=== PATIENT | female | born 2000 | race Caucasian/White ===

== ENCOUNTER 2023-03-19 15:11 | Emergency (ER) | payer BC, SELFPAY ==
--- NOTE | ~2023-03-19 | CT_ITS ---
EXAMINATION: CT abdomen pelvis w con DATE: 03/19/2023 18:57 INDICATION: Right lower abdomen pain. TECHNIQUE: Computed tomography (CT) of the abdomen and pelvis was performed with 100 cc Omnipaque 350 intravenous contrast. The dose-length product was 227.26 mGy-cm. Automated exposure control and iter ative reconstruction technique were employed. COMPARISON: None. FINDINGS: Lung bases unremarkable. Heart size normal. No significant pleural or pericardial effusion. The liver, spleen, pancreas, adrenal glands and kidneys are unremarkable. Gallbladder is present. No nobstructive bowel gas pattern. IUD present in the uterus. Small amount of free fluid in the pelvis. Nonobstructive bowel pattern. No significant vascular abnormality. No lymphadenopathy. No free air. B ladder is not well distended for evaluation of wall thickening. No acute osseous abnormality. There a re follicular changes of the right ovary. The appendix is not positively visualized. There is no per icecal inflammatory change to suggest appendicitis. IMPRESSION: 1. No acute abdominal abnormality. Reviewed, dictated and finalized at location A.
--- NOTE | ~2023-03-19 | US_ITS ---
EXAMINATION: US pelvic complete w TV DATE: 03/19/2023 19:24 INDICATION: Pelvic pain Comparison:No prior studies for comparison. TECHNIQUE: Multiple transabdominal and endovaginal sonographic images of the pelvis performed. FINDINGS: The uterus measures 6.6 x 3.9 x 5.6 cm. Uterus is retroverted. There is an IUD in the endom etrium at the fundus. The endometrial complex measures 7 mm. The right ovary measures 3.8 x 2 x 2.5 cm and the left ovary measures 4 x 4 x 1.7 cm. There are smal l follicles in each ovary. Normal doppler signal in both ovaries. There is free fluid in the pelvis. There are no abnormal masses seen on either side. IMPRESSION: 1. Unremarkable pelvic ultrasound. Reviewed, dictated and finalized at location A.
[2023-03-19 15:32] VITALS: BP 110/78; PULSE 79; RESP 20; TEMP 36.4; O2SAT 98
--- NOTE | 2023-03-19 15:44 | ED.GENADULT ---
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 She states the pain has been moving across her abdomen but there seems to be more pain to the right lower quadrant. 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 She states the pain has been moving across her abdomen but there seems to be more pain to the right lower quadrant. No vaginal bleeding/ No changes to urine/ Last BM was today / No nausea vomiting. <Lio Shen MD - Last Filed: 03/19/23 19:04> Related Data Home medications: Home Medications Medication Instructions Recorded Confirmed cranberry extract PO 11/22/22 11/22/22 ferrous sulfate PO 11/22/22 11/22/22 lamotrigine 150 mg tablet 75 mg PO DAILY 11/22/22 11/22/22 (Lamictal) [id number] fum-folic ac-om3 PO 11/22/22 11/22/22 [One A Day Women's DHA] venlafaxine 37.5 mg tablet 37.5 mg PO DAILY 11/22/22 11/22/22 <Melissa Ortega, MEDICAL DRIVER - Last Filed: 03/19/23 15:46> Allergies/adverse reactions: Allergies Allergy/AdvReac Type Severity Reaction Status Date / Time Raven auto injector AdvReac Severe Anaphylaxis Uncoded 11/22/22 13:37 <Melissa Ortega, MEDICAL DRIVER - Last Filed: 03/19/23 15:46> Review of Systems Review of Systems: CONSTITUTIONAL: Denies fever, chills, or sweats. CARDIOVASCULAR: Denies chest pain, palpitations, or edema. RESPIRATORY: Denies cough or dyspnea. GASTROINTESTINAL: Right lower quadrant abdominal pain, nausea denies vomiting, or diarrhea. GENITOURINARY: Denies dysuria or hematuria. SKIN: Denies rash or itching. MUSCULOSKELETAL: Denies back pain, joint pain, or myalgia. NEUROLOGIC: Denies headache, numbness, dizziness, or weakness. PSYCHIATRIC: Denies anxiety or depression. <Lio Shen MD - Last Filed: 03/19/23 19:04> [facility] Past Medical History Medical History: Medical History ADHD Allergies Anemia Anxiety Asthma Bipolar 1 disorder Depression Encounter to establish care Exercise-induced asthma Lightheadedness Migraine OCD (obsessive compulsive disorder) PTSD (post-traumatic stress disorder) Tachycardia <Melissa Ortega APRN - Last Filed: 03/19/23 15:46> Family History Family History: Family History Mother Asthma Diabetes mellitus Hypertension Heart disease Alcohol abuse Sibling Alcohol abuse Asthma Depression Grandparent Alcohol abuse Asthma Diabetes mellitus Hypertension Depression Heart disease Thyroid disease <Melissa Ortega, MEDICAL DRIVER - Last Filed: 03/19/23 15:46> Social History Social History: Social History Smoking status: Never smoker Alcohol intake: current Drinks per week: 2 Substance use: never Substance use type: does not use <Melissa Ortega, MEDICAL DRIVER - Last Filed: 03/19/23 15:46> Exam Narrative: GENERAL: Well-developed, well-nourished, and in no acute distress. Appears uncomfortable HEAD: Normocephalic, atraumatic. EYES: PERRLA and EOMI. CHEST: Clear to auscultation. No respiratory distress. No wheezes rales or rhonchi HEART: Regular rate and rhythm. No murmur heard. Normal peripheral pulses. ABDOMEN: Soft, right lower quadrant tenderness to p
[2023-03-19 16:03] LABS: Basophils Percent Auto 0.5 % (0.2-1.2); Eosinophils Absolute Auto 0.1 K/mm3 (0-0.3); Eosinophils Percent Auto 1.3 % (0-4.4); Hematocrit 41.1 % (37.0-47.0); Hemoglobin 13.5 g/dL (12.0-15.0); Immature Granulocyte Absolute 0.01 K/mm3 (0.00-0.031); Immature Granulocyte Percent A 0.1 % (0-0.5); Lymphocytes Absolute Auto 1.65 K/mm3 (0.9-3.2); Lymphocytes Percent Auto 19.6 % (18.3-44.2); Mean Corpuscular HGB Conc 32.8 g/dl (32-36); Mean Corpuscular Hemoglobin 28.3 pg (26-34); Mean Corpuscular Volume 86.2 fl (80-100); Mean Platelet Volume 10.3 fl (7.4-10.4); Monocytes Absolute Auto 0.8 K/mm3 (0.1-0.6); Neutrophils Absolute Auto 5.8 K/mm3 (1.3-6.7); Neutrophils Percent Auto 68.5 % (45.5-73.1); Platelet Count Result 215 k/mm3 (150-375); Red Blood Count 4.77 M/mm3 (4.2-5.4); Red Cell Distribution Width 11.9 % (11.5-14.5); White Blood Count 8.4 K/mm3 (4.5-10.0)
[2023-03-19 16:11] LABS: Alanine Aminotransferase 18 U/L (6-35); Albumin Level 4.6 g/dL (3.5-5.1); Alkaline Phosphatase 78 U/L (38-126); Anion Gap 10 mmol/L (8-16); Aspartate Amino Transferase 32 U/L (14-36); Blood Urea Nitrogen 12 mg/dL (7-17); Calcium 9.1 mg/dL (8.4-10.2); Carbon Dioxide 24 mmol/L (22-30); Chloride 105 mmol/L (98-107); Estimated CRCL calculation 75 ml/min; Estimated Glomerular Filt Rate > 60; Glucose 90 mg/dL (65-110); Potassium 4.2 mmol/L (3.4-5.0); Sodium 139 mmol/L (137-145)
[2023-03-19 17:54] LABS: Lactic Acid Reflex 0.8 mmol/L (0.7-2.0)
[2023-03-19 17:56] LABS: Appearance Urine Clear (Clear); Bilirubin Urine Negative (Negative); Blood Urine Negative (Negative); Color Urine Yellow (Yellow); Glucose Urine UA Negative (Negative); Ketones Urine Negative (Negative); Leukocyte Esterase Ur Negative LEU/UL (Negative); Nitrate Urine Negative (Negative); Protein Urine Negative (Negative); Specific Grav Ur 1.025 (1.001-1.035); Urobilinogen Urine 0.2 mg/dL (<2.0); pH Urine 5.5 (5.0-9.0)
[2023-03-19 18:15] LABS: Add Urine Microscopic? NO
[2023-03-19] MEDS: ONDANSETRON INJ 4 MG/2 ML VIAL IV PUSH (18:17)
[2023-03-19] MEDS: MORPHINE SULFATE (*CRX) 4 MG/ML INJ IV PUSH (18:17)
--- NOTE | 2023-03-19 18:26 | PC.NURSE ---
Lab called to have HCG ran off urine specimen in lab
[2023-03-19 18:39] LABS: Urine Pregnancy Test Negative
[2023-03-19 18:40] VITALS: BP 110/66; PULSE 68; RESP 16; TEMP 36.7; O2SAT 100
[2023-03-19 18:40] LABS: Pregnancy On Board Control Positive
== END 2023-03-19 21:31 | disposition home or self-care (01) ==
PROVIDERS: Nurse Practitioner Family; Emergency Provider Preventive Medicine Aerospace Medicine; PCP Nurse Practitioner Family
DX: R10.2 Pelvic and perineal pain (principal); J45.909 Unspecified asthma, uncomplicated; F90.9 Attention-deficit hyperactivity disorder, unspecified type; F41.9 Anxiety disorder, unspecified; F31.9 Bipolar disorder, unspecified; F42.9 Obsessive-compulsive disorder, unspecified; F43.10 Post-traumatic stress disorder, unspecified; Z86.2 Personal history of diseases of the blood and blood-forming organs and certain disorders involving the immune mechanism; Z97.5 Presence of (intrauterine) contraceptive device
CPT/HCPCS: 36415; 74177; 76830; 76856; 80053; 81003; 81025; 83605; 85025; 96374; 96375; 99284; J2270; J2405; Q9967

== ENCOUNTER 2023-07-01 18:58 | Emergency (ER) | payer BC, SELFPAY ==
--- NOTE | 2023-07-01 19:09 | ED.URI ---
HPI - URI/Sore Throat General Chief Complaint: Upper Respiratory Infection Stated Complaint: pink eye,tonsil swollen Time Seen by Provider: 07/01/23 19:09 Source: patient Mode of arrival: ambulatory Limitations: no limitations History of Present Illness HPI Narrative: [age] year Old female presents with complaint of sore throat, fatigue starting yesterday. patient reports history of tonsillitis. Also reports bilateral eye redness, itching and drainage for 2 days. States 1 of her children currently on antibiotic drops for bacterial conjunctivitis. All systems reviewed and negative except as noted above. Related Data Home Medications Medication Instructions Recorded Confirmed cranberry extract PO 11/22/22 11/22/22 ferrous sulfate PO 11/22/22 11/22/22 lamotrigine 150 mg tablet 75 mg PO DAILY 11/22/22 11/22/22 (Lamictal) -sqhu fum-folic ac-om3 PO 11/22/22 11/22/22 [One A Day Women's DHA] venlafaxine 37.5 mg tablet 37.5 mg PO DAILY 11/22/22 11/22/22 Allergies Allergy/AdvReac Type Severity Reaction Status Date / Time pork derived (porcine) AdvReac Nausea and Verified 07/01/23 19:16 Vomiting Raven auto injector AdvReac Severe Anaphylaxis Uncoded 07/01/23 19:16 Review of Systems Review of Systems: CONSTITUTIONAL: Denies fever, chills, or sweats. Reports fatigue. EYES: Denies visual changes. Reports bilateral eye redness, itching, discharge. ENT: Denies rhinorrhea, congestion . Reports sore throat. Denies otalgia. CARDIOVASCULAR: Denies chest pain, palpitations, or edema. RESPIRATORY: Denies cough or dyspnea. GASTROINTESTINAL: Denies abdominal pain, nausea, vomiting, or diarrhea. GENITOURINARY: Denies dysuria or hematuria. SKIN: Denies rash or itching. MUSCULOSKELETAL: Denies back pain, joint pain, or myalgia. NEUROLOGIC: Denies headache, numbness, or weakness. PSYCHIATRIC: Denies anxiety or depression. All other systems reviewed are negative, except as documented in HPI. [facility] Past Medical History Medical History ADHD Allergies Anemia Anxiety Asthma Bipolar 1 disorder Depression Encounter to establish care Exercise-induced asthma Lightheadedness Migraine OCD (obsessive compulsive disorder) PTSD (post-traumatic stress disorder) Tachycardia Family History Family History Mother Asthma Diabetes mellitus Hypertension Heart disease Alcohol abuse Sibling Alcohol abuse Asthma Depression Grandparent Alcohol abuse Asthma Diabetes mellitus Hypertension Depression Heart disease Thyroid disease Social History Social History Smoking status: Never smoker Alcohol intake: current Drinks per week: 2 Substance use: never Substance use type: does not use Comments At time of signature, agree with nursing past medical, surgical, social and family history. There is no relevant family history pertinent to the presenting complaint. Exam Narrative: GENERAL: This is a well-nourished, well-developed patient, in no apparent distress. HEAD: normocephalic, atraumatic. EYES: PERRL. Sclera and conjunctiva erythematous bilaterally with purulent drainage. Vision is grossly intact. EARS: External ears normal, auditory canals clear and without drainage, TMs normal without perforation. Hearing grossly intact. NOSE: External nose normal with no obvious nasal discharge, nares without redness, no rhinorrhea. THROAT: Mucous membranes moist, mild erythema, tonsils 1+ bilaterally without exudates. NECK: Neck supple, non-tender without lymphadenopathy, masses or thyromegaly. CARDIOVASCULAR: Regular rate and rhythm without murmurs, gallops, or rubs. RESPIRATORY: Clear to auscultation. Breath sounds equal bilaterally. No wheezes, rales, or rhonchi. SKIN: warm, Dry, intact with no suspicious
[2023-07-01 19:13] VITALS: BP 113/81; PULSE 78; RESP 16; TEMP 36.5; O2SAT 100
== END 2023-07-01 19:35 | disposition home or self-care (01) ==
PROVIDERS: Emergency Provider Nurse Practitioner Family; PCP Nurse Practitioner Family
DX: J02.0 Streptococcal pharyngitis (principal); H10.33 Unspecified acute conjunctivitis, bilateral; J45.909 Unspecified asthma, uncomplicated; F41.9 Anxiety disorder, unspecified; F32.A Depression, unspecified
CPT/HCPCS: 87880; 99213; G0463

== ENCOUNTER 2023-11-21 18:33 | Emergency (ER) | payer BC, SELFPAY ==
[2023-11-21 18:38] VITALS: BP 111/69; PULSE 81; RESP 18; TEMP 36.6; O2SAT 100
--- NOTE | 2023-11-21 18:48 | ED.SKABFB ---
HPI - Skin/Abscess/Foreign Bdy General Chief complaint: Skin/Abscess/Foreign Body Stated complaint: Posion Nancy Time Seen by Provider: 11/21/23 18:42 Source: patient, RN notes reviewed and old records reviewed Mode of arrival: ambulatory Limitations: no limitations History of Present Illness HPI narrative: 23 year old female who presents to [facility] with complaints of 7-8 day history of poison nancy rash to the dorsal aspect of her left foot which has now spread to the top of her right foot and also behind her left ear. Patient reports that she has taken Benadryl, Ivarest ointment and also special scrub to use for poison nancy without resolution of rash. Patient reports no difficulty with breathing or with her swallowing. MD complaint: rash Onset (ago): day(s) (-8) Severity: mild Quality: pruritic Treatments prior to arrival: Benadryl and other (Ivarest and special scrub for poison nancy ) Related Data Home Medications Medication Instructions Recorded Confirmed cranberry extract PO 11/22/22 11/22/22 ferrous sulfate PO 11/22/22 11/22/22 lamotrigine 150 mg tablet 75 mg PO DAILY 11/22/22 11/22/22 (Lamictal) [id number] fum-folic ac-om3 PO 11/22/22 11/22/22 [One A Day Women's DHA] venlafaxine 37.5 mg tablet 37.5 mg PO DAILY 11/22/22 11/22/22 Allergies Allergy/AdvReac Type Severity Reaction Status Date / Time Progestins Allergy Anaphylaxis Verified 11/21/23 18:49 pork derived (porcine) AdvReac Nausea and Verified 11/21/23 18:49 Vomiting Review of Systems Review of Systems: CONSTITUTIONAL: Denies fever, chills, or sweats. CARDIOVASCULAR: Denies chest pain, palpitations, or edema. RESPIRATORY: Denies cough or dyspnea. SKIN: Reports poison nancy rash to dorsal left and right foot and behind left ear MUSCULOSKELETAL: Denies joint pain or myalgia. NEUROLOGIC: Denies headache, numbness, or weakness. All systems reviewed & are unremarkable except as noted in HPI and below PMFSH Past Medical History Medical History ADHD Allergies Anemia Anxiety Asthma Bipolar 1 disorder Depression Encounter to establish care Exercise-induced asthma Lightheadedness Migraine OCD (obsessive compulsive disorder) PTSD (post-traumatic stress disorder) Tachycardia Family History Family History Mother Asthma Diabetes mellitus Hypertension Heart disease Alcohol abuse Sibling Alcohol abuse Asthma Depression Grandparent Alcohol abuse Asthma Diabetes mellitus Hypertension Depression Heart disease Thyroid disease Social History Social History Smoking status: Never smoker Alcohol intake: current Drinks per week: 2 Substance use: never Substance use type: does not use Comments At time of signature, agree with nursing past medical, surgical, social and family history. There is no relevant family history pertinent to the presenting complaint Exam Narrative: GENERAL: Well-appearing, well-nourished, and in no acute distress. HEAD: Normocephalic, atraumatic. EYES: PERRLA, conjunctivae clear, and EOMI. ENT: Mucous membranes moist. Oropharynx without edema, erythema or lesions. NECK: Supple. No lymphadenopathy CHEST: Clear to auscultation. No respiratory distress. HEART: Regular rate and rhythm. SKIN: Warm, dry.? Patches of erythema and minimal edema to dorsal feet and behind left ear which is itchy NEURO:? Alert and oriented x3. PSYCH: Normal mood and affect Course Course Emergency Course: Patient is aware of diagnosis, understands and agrees to treatment plan.? Anticipatory guidance given.? Patient agrees to follow-up as directed and is aware of reasons to seek care at the emergency department. Portions of this record may have been created with voice recognition software Level of Care:
== END 2023-11-21 19:00 | disposition home or self-care (01) ==
PROVIDERS: Emergency Provider Registered Nurse; PCP Nurse Practitioner Family
DX: L23.7 Allergic contact dermatitis due to plants, except food (principal); J45.909 Unspecified asthma, uncomplicated; D64.9 Anemia, unspecified; F41.9 Anxiety disorder, unspecified; F32.A Depression, unspecified
CPT/HCPCS: 99213; G0463

== ENCOUNTER 2024-01-27 09:51 | Emergency (ER) | payer BC, SELFPAY ==
[2024-01-27 10:12] VITALS: BP 107/86; PULSE 109; RESP 18; TEMP 36.7; O2SAT 100
--- NOTE | 2024-01-27 10:12 | ED.URI ---
HPI - URI/Sore Throat General Chief Complaint: Upper Respiratory Infection Stated Complaint: cough and sore throat Time Seen by Provider: 01/27/24 10:15 Source: patient Mode of arrival: ambulatory Limitations: no limitations History of Present Illness HPI Narrative: Fariha is a 23-year-old female patient presenting to the clinic today with complaints of cough, sore throat, congestion, headache, and body aches that started this morning. Her is in the clinic today to be seen for similar symptoms and is positive for COVID. MD elicited complaint: cough, sore throat and nasal congestion Related Data Home Medications Medication Instructions Recorded Confirmed aripiprazole 5 mg tablet 5 mg PO DAILY 01/27/24 01/27/24 dextroamphetamine-amphetamine ER 30 mg PO DAILY 01/27/24 01/27/24 30 mg 24hr capsule,extend release hydroxyzine HCl 10 mg tablet 10 mg PO PRN PRN Anxiety 01/27/24 01/27/24 levonorgestrel 21 mcg/24 hr (up to See Rx Instructions .Route .COMPLEX 01/27/24 01/27/24 8 years) 52 mg intrauterine device (Mirena) Allergies Allergy/AdvReac Type Severity Reaction Status Date / Time Progestins Allergy Severe Anaphylaxis Verified 01/27/24 10:17 pork derived (porcine) AdvReac Intermediate Nausea and Verified 01/27/24 10:17 Vomiting Review of Systems Review of Systems: Pertinent positives per HPI. Patient denies any fever, chills, rash, visual changes, dizziness, shortness of breath, chest pain, palpitations, nausea, vomiting, diarrhea, constipation, abdominal pain, or any urinary issues. [facility] Past Medical History Medical History ADHD Allergies Anemia Anxiety Asthma Bipolar 1 disorder Depression Encounter to establish care Exercise-induced asthma Lightheadedness Migraine OCD (obsessive compulsive disorder) PTSD (post-traumatic stress disorder) Tachycardia Family History Family History Mother Asthma Diabetes mellitus Hypertension Heart disease Alcohol abuse Sibling Alcohol abuse Asthma Depression Grandparent Alcohol abuse Asthma Diabetes mellitus Hypertension Depression Heart disease Thyroid disease Social History Social History Smoking status: Never smoker Alcohol intake: current Drinks per week: 2 Substance use: never Substance use type: does not use Comments At the time of my signature, I reviewed and agree with the nursing past medical, surgical, social, and family history. There is no relevant family history pertinent to the patient complaint. Exam Narrative: General: Well-developed, well nourished, in no apparent distress Head: Normocephalic, atraumatic Eyes: Pupils equally round and reactive to light bilaterally, EOM intact, sclera and conjunctive clear, no discharge, lids normal Ears: TMs intact and clear, ear canals clear, no drainage, grossly hearing normal. Nose: Nares patent, clear nasal discharge, no inflammation, no sinus tenderness. Mouth: Oral pharynx without lesions or masses, good dentition, MMM. Neck: Supple, trachea midline, no enlargement of anterior or posterior cervical nodes, no thyroid masses or goiter palpable. Cardio: Regular rate and rhythm, s1 and s2 normal, no murmur appreciated. Resp: Clear to auscultation bilaterally, no rhonchi, rales, wheezing or rubs Course Course Emergency Course: Portions of this record may have been created with voice recognition software. Level of Care: Express Care Visit Vital Signs Vital signs: Vital signs reviewed MDM - URI/Sore Throat MDM Narrative Medical decision making narrative: At the time of visit patient is resting comfortably on the exam table. Patient appears to be nontoxic. Labs: COVID testing was negative in the clinic today. Plan: Patient's spouse has COVID and her COVID radha
== END 2024-01-27 10:50 | disposition home or self-care (01) ==
PROVIDERS: Emergency Provider Nurse Practitioner Family; PCP Nurse Practitioner Family
DX: B34.9 Viral infection, unspecified (principal); J06.9 Acute upper respiratory infection, unspecified; Z20.822 Contact with and (suspected) exposure to COVID-19; J45.909 Unspecified asthma, uncomplicated; F90.9 Attention-deficit hyperactivity disorder, unspecified type; F41.9 Anxiety disorder, unspecified
CPT/HCPCS: 87426; 99212; G0463

== ENCOUNTER 2024-04-15 11:11 | Emergency (ER) | payer BC, SELFPAY ==
[2024-04-15 11:31] VITALS: BP 112/69; PULSE 80; RESP 18; TEMP 36.5; O2SAT 100
[2024-04-15 11:40] LABS: EDSTREPNEGPOS1 Negative (Negative)
--- NOTE | 2024-04-15 11:56 | ED.URI ---
HPI - URI/Sore Throat General Chief Complaint: Upper Respiratory Infection Stated Complaint: bodyache / sore throat Time Seen by Provider: 04/15/24 11:57 Source: patient Mode of arrival: ambulatory Limitations: no limitations History of Present Illness HPI Narrative: 23-year-old female presents with complaint of sore throat, sensation of throat swelling and feeling like something is stuck in her throat. Also has body aches and fatigue. Symptoms started this morning. Patient reports that her was diagnosed with strep throat yesterday. Afebrile. All systems reviewed and negative except as noted above. Related Data Home Medications Medication Instructions Recorded Confirmed aripiprazole 5 mg tablet 5 mg PO DAILY 01/27/24 04/15/24 dextroamphetamine-amphetamine ER 30 mg PO DAILY 01/27/24 04/15/24 30 mg 24hr capsule,extend release hydroxyzine HCl 10 mg tablet 10 mg PO PRN PRN Anxiety 01/27/24 04/15/24 levonorgestrel 21 mcg/24 hr (up to See Rx Instructions .Route .COMPLEX 01/27/24 04/15/24 8 years) 52 mg intrauterine device (Mirena) Allergies Allergy/AdvReac Type Severity Reaction Status Date / Time Progestins Allergy Severe Anaphylaxis Verified 04/15/24 11:39 pork derived (porcine) AdvReac Intermediate Nausea and Verified 04/15/24 11:39 Vomiting Review of Systems Review of Systems: CONSTITUTIONAL: Denies fever, chills, or sweats. reports fatigue. EYES: Denies visual changes, redness, or discharge. ENT: Denies rhinorrhea, congestion . Reports sore throat. Denies otalgia. CARDIOVASCULAR: Denies chest pain, palpitations, or edema. RESPIRATORY: Denies cough or dyspnea. GASTROINTESTINAL: Denies abdominal pain, nausea, vomiting, or diarrhea. GENITOURINARY: Denies dysuria or hematuria. SKIN: Denies rash or itching. MUSCULOSKELETAL: Denies back pain, joint pain . Reports myalgia. NEUROLOGIC: Denies headache, numbness, or weakness. PSYCHIATRIC: Denies anxiety or depression. All other systems reviewed are negative, except as documented in HPI. [facility] Past Medical History Medical History ADHD Allergies Anemia Anxiety Asthma Bipolar 1 disorder Depression Encounter to establish care Exercise-induced asthma Lightheadedness Migraine OCD (obsessive compulsive disorder) PTSD (post-traumatic stress disorder) Tachycardia Family History Family History Mother Asthma Diabetes mellitus Hypertension Heart disease Alcohol abuse Sibling Alcohol abuse Asthma Depression Grandparent Alcohol abuse Asthma Diabetes mellitus Hypertension Depression Heart disease Thyroid disease Social History Social History Smoking status: Never smoker Alcohol intake: current Drinks per week: 2 Substance use: never Substance use type: does not use Comments At time of signature, agree with nursing past medical, surgical, social and family history. There is no relevant family history pertinent to the presenting complaint. Exam Narrative: GENERAL: This is a well-nourished, well-developed patient, in no apparent distress. HEAD: normocephalic, atraumatic. EYES: PERRL. Sclera clear/white. Vision is grossly intact. EARS: External ears normal, auditory canals clear and without drainage, TMs normal without perforation. Hearing grossly intact. NOSE: External nose normal with no obvious nasal discharge, nares without redness, no rhinorrhea. THROAT: Mucous membranes moist, erythema with mild swelling. No exudates. NECK: Neck supple, non-tender without lymphadenopathy, masses or thyromegaly. CARDIOVASCULAR: Regular rate and rhythm without murmurs, gallops, or rubs. RESPIRATORY: Clear to auscultation. Breath sounds equal bilaterally. No wheezes, rales, or rhonchi. SKIN: warm, Dry, intact with no suspicious lesions or rash, good texture and turgor. NEURO: awake, alert, and oriented to person, place and time. There were no obvious focal neurologic abnormalities. EXTREMITIES: No joint tenderness, effusion, or edema noted. Course Course Level of Care: Express Care Visit Vital Signs Vital signs: Vital Signs Temperature 36.5 C 04/15/24 11:31 Pulse Rate 80 04/15/24 11:31 Respiratory Rate 18 04/15/24 11:31 Blood Pressure 112/69 04/15/24 11:31 Pulse Oximetry 100 04/15/24 11:31 Oxygen Delivery Room Air 04/15/24 11:31 Temperature 36.5 C 04/15/24 11:31 Pulse Rate 80 11/26/24 11:31 Respiratory Rate 18 04/15/24 11:31 Blood Pressure 112/69 04/15/24 11:31 Pulse Oximetry 100 04/15/24 11:31 Oxygen Delivery Room Air 04/15/24 11:31 Reviewed MDM - URI/Sore Throat MDM Narrative Medical decision making narrative: negative rapid strep test. Strep culture ordered. Patient has been positive for strep throat yesterday. Will treat with antibiotic due to exposure and symptoms. Patient is aware of diagnosis, understands and agrees to treatment plan. Anticipatory guidance given. Patient agrees to follow-up as directed and is aware of reasons to seek care at the emergency department. Portions of this record may have been created with voice recognition software Differential Diagnosis Differential diagnosis: Likely upper respiratory infection, viral infection, influenza and pharyngitis Lab Data Labs: Lab Results 04/15/24 Range/Units 11:37 POC Grp A Strep Screen Negative (Negative) Discharge Plan Discharge Clinical Impression: Exposure to strep throat Acute pharyngitis Qualifiers: Pharyngitis/tonsillitis etiology: unspecified etiology Qualified Code(s): J02.9 - Acute pharyngitis, unspecified Patient Disposition: Home, Self-Care Condition: Stable Instructions: Antibiotic Form, Pharyngitis (ED) Additional Instructions: your strep test was negative today. due to your symptoms and exposure to strep I am prescribing an antibiotic today. Take antibiotic as prescribed until gone. Change toothbrush after taking antibiotic for 24 hours. Take ibuprofen or Tylenol every 6-8 hours as needed for pain and fever. Drink plenty of water and rest. See your doctor if symptoms are not improving. Prescriptions: New amoxicillin 500 mg capsule 500 mg PO Q12H 10 Days Qty: 20 0RF No Action dextroamphetamine-amphetamine 30 mg capsule,extended release 24hr 30 mg PO DAILY hydroxyzine HCl 10 mg tablet 10 mg PO PRN PRN (Reason: Anxiety) aripiprazole 5 mg tablet 5 mg PO DAILY Mirena 21 mcg/24 hr (8 yrs) 52 mg Intrauterine Device See Rx Instructions .ROUTE .COMPLEX Rx Instructions: intrauterinely Follow-up/Referrals: Debi Poe NP [Primary Care Provider] - Stand Alone Forms: Work/School Release IP Time of Disposition: 12:01
== END 2024-04-15 12:10 | disposition home or self-care (01) ==
PROVIDERS: Emergency Provider Nurse Practitioner Family; PCP Nurse Practitioner Family
DX: J02.9 Acute pharyngitis, unspecified (principal); Z79.899 Other long term (current) drug therapy
CPT/HCPCS: 87081; 87880; 99213; G0463

== ENCOUNTER 2024-04-23 16:04 | Emergency (ER) | payer BC, SELFPAY ==
[2024-04-23 16:13] VITALS: BP 104/71; PULSE 81; RESP 18; TEMP 36.9; O2SAT 100
--- NOTE | 2024-04-23 16:23 | ED.URI ---
HPI - URI/Sore Throat General Chief Complaint: Upper Respiratory Infection Stated Complaint: Body aches / sore throat Time Seen by Provider: 04/23/24 16:23 Source: patient, RN notes reviewed and old records reviewed Mode of arrival: ambulatory Limitations: no limitations History of Present Illness HPI Narrative: Patient who is being treated for strep, did not take antibiotics as prescribed, comes in complaining of body aches and sore throat that have been present for 3 days. She is complaining of chills and sweats. she has been taking Tylenol and ibuprofen with moderate results. Able to manage own secretions, no drooling or stridor no Related Data Home Medications Medication Instructions Recorded Confirmed aripiprazole 5 mg tablet 5 mg PO DAILY 01/27/24 04/23/24 dextroamphetamine-amphetamine ER 30 mg PO DAILY 01/27/24 04/23/24 30 mg 24hr capsule,extend release hydroxyzine HCl 10 mg tablet 10 mg PO PRN PRN Anxiety 01/27/24 04/23/24 levonorgestrel 21 mcg/24 hr (up to See Rx Instructions .Route .COMPLEX 01/27/24 04/23/24 8 years) 52 mg intrauterine device (Mirena) amoxicillin 500 mg capsule 500 mg PO BID 04/23/24 04/23/24 Allergies Allergy/AdvReac Type Severity Reaction Status Date / Time Progestins Allergy Severe Anaphylaxis Verified 04/23/24 16:05 pork derived (porcine) AdvReac Intermediate Nausea and Verified 04/23/24 16:05 Vomiting Review of Systems Review of Systems: All systems reviewed & are unremarkable except as noted in HPI and below Constitutional: Constitutional: Reports no additional constitutional complaints, Reports body ache(s), Reports headache(s) and Reports lethargy ENT: Reports system reviewed and no additional complaints, except as documented and Reports sore throat Cardiovascular: Cardiovascular: Reports no additional cardiovascular complaints Respiratory: Respiratory: Reports no additional respiratory complaints Gastrointestinal: Gastrointestinal: Reports no additional gastrointestinal complaints PMFSH Past Medical History Medical History ADHD Allergies Anemia Anxiety Asthma Bipolar 1 disorder Depression Encounter to establish care Exercise-induced asthma Lightheadedness Migraine OCD (obsessive compulsive disorder) PTSD (post-traumatic stress disorder) Tachycardia Family History Family History Mother Asthma Diabetes mellitus Hypertension Heart disease Alcohol abuse Sibling Alcohol abuse Asthma Depression Grandparent Alcohol abuse Asthma Diabetes mellitus Hypertension Depression Heart disease Thyroid disease Social History Social History Smoking status: Never smoker Alcohol intake: current Drinks per week: 2 Substance use: never Substance use type: does not use Comments At the time of my signature, I reviewed and agree with the nursing past medical, surgical, social, and family history. There is no relevant family history pertinent to the patient complaint. Exam Const: General: cooperative, no acute distress, alert and awake Orientation/consciousness: oriented to person, oriented to place and oriented to time HENMT: Head: normal to inspection Ears: TM's normal bilaterally Face/Nose/Sinus: No nasal discharge present Mouth: Yes moist mucous membranes Throat: posterior oropharynx abnormal erythema Resp: Effort & Inspection: normal respiratory effort and able to speak in complete sentences Auscultation: clear to auscultation bilaterally, no crackles, no rales, no rhonchi and no wheezes Cardio: Palpation: normal PMI Rate: regular rate Rhythm: regular rhythm Heart sounds: S1 normal heart sound present and S2 normal heart sound present Neuro: General: oriented to person, oriented to place and oriented to time Cranial nerves: Yes CN's II-XII intact bilaterally Psych: Appearance: grossly normal Thought process: Normal thought process present Insight: Good insight present (Psych) Judgement: Good judgement present (Psych) Course Course Level of Care: Express Care Visit Vital Signs Vital signs: Vital Signs Temperature 98.5 F 04/23/24 16:13 Pulse Rate 81 04/23/24 16:13 Respiratory Rate 18 04/23/24 16:13 Blood Pressure 104/71 04/23/24 16:13 Pulse Oximetry 100 04/23/24 16:13 Oxygen Delivery Room Air 04/23/24 16:13 Temperature 98.5 F 04/23/24 16:13 Pulse Rate 81 04/23/24 16:13 Respiratory Rate 18 04/23/24 16:13 Blood Pressure 104/71 04/23/24 16:13 Pulse Oximetry 100 04/23/24 16:13 Oxygen Delivery Room Air 04/23/24 16:13 Reviewed MDM - URI/Sore Throat MDM Narrative Medical decision making narrative: negative COVID, negative flu. Positive strep. Patient advised to finish all antibiotics this time. Discard toothpaste in toothbrush after 48 hours on antibiotic therapy. Follow with primary care provider. Emergency department for new or worse symptoms Some parts of this dictation were generated by voice recognition software and may contain typographical and/or grammatical inaccuracies. Discharge instructions reviewed with patient, as well as provided in writing per nursing staff. The instructions also include specific and strict return/GO TO THE ER as well as f/u information. All questions have been answered, and the patient deny any further questions with discharge and discharge plan. Differential Diagnosis Differential diagnosis: Likely upper respiratory infection, otitis media, viral infection, influenza and pharyngitis Medical Records Attestation: I reviewed the patient's medical records. Lab Data Attestation: I reviewed the patient's lab results. Discharge Plan Discharge Clinical Impression: Pharyngitis Qualifiers: Pharyngitis/tonsillitis etiology: streptococcus Qualified Code(s): J02.0 - Streptococcal pharyngitis Patient Disposition: Home, Self-Care Condition: Stable Instructions: Antibiotic Form, Pharyngitis (ED) Additional Instructions: Take medications as prescribed. Discard toothpaste and toothbrush after 48 hours of antibiotic therapy. Follow-up with primary care provider. Emergency department for new or worse symptoms Patient Language: Green[place]ic Prescriptions: New penicillin V potassium 500 mg tablet 500 mg PO Q12H 10 Days Qty: 20 0RF No Action dextroamphetamine-amphetamine 30 mg capsule,extended release 24hr 30 mg PO DAILY hydroxyzine HCl 10 mg tablet 10 mg PO PRN PRN (Reason: Anxiety) aripiprazole 5 mg tablet 5 mg PO DAILY Mirena 21 mcg/24 hr (8 yrs) 52 mg Intrauterine Device See Rx Instructions .ROUTE .COMPLEX Rx Instructions: intrauterinely amoxicillin 500 mg capsule 500 mg PO BID Follow-up/Referrals: Debi Poe NP [Primary Care Provider] - 2 Weeks Stand Alone Forms: Work/School Release IP Time of Disposition: 16:43
[2024-04-23 16:35] LABS: EDSTREPNEGPOS1 Negative (Negative)
[2024-04-23 16:53] LABS: EDCOVIDSCREEN Negative (Negative); EDINFLUASCREEN Negative (Negative); EDINFLUBSCREEN Negative (Negative)
== END 2024-04-23 16:45 | disposition home or self-care (01) ==
PROVIDERS: Emergency Provider Nurse Practitioner Family; PCP Nurse Practitioner Family
DX: J02.0 Streptococcal pharyngitis (principal); Z20.822 Contact with and (suspected) exposure to COVID-19
CPT/HCPCS: 87426; 87804; 87880; 99213; G0463

== ENCOUNTER 2024-11-20 12:05 | Outpatient (CLI) | payer BC, SELFPAY ==
--- OUTSIDE RECORDS SUMMARY | 2024-11-20 12:10 | XMS_ITS | Data Portability ---
Author Organization [facility], PMarciCMarci, [place] Address [address] [place] [address] [address] Care Team Providers Care Compliance Project Manager Name Role Phone ELIOT PINA Primary Care Provider [phone] Assessment Encounter Date Assessment Date Assessment LastModified by Organization Details LastModified Time 01/12/2023 01/12/2023 Discussed various forms of contraception including their usage, and risks, benefits, and alternatives. DIscussed avoiding estrogen while , and the potential interaction with lamictal. She would like Mirena. Discussed the risks, benefits, and alternatives to Mirena IUD. Discussed insertion and removal process. Discussed bleeding profile. Questions answered. Will schedule insertion with menses. WWE due after that? Not available 01/12/2023 16:49:29 01/23/2023 01/23/2023 IUD check 6w WWE 3 mos [email or web address] Not available 01/23/2023 20:08:11 Plan of Treatment Reminders Order Date Submit Date Provider Last Modified By Organization Details Last Modified Time Details Appointments None recorded. Lab test, urine 2022 023 [facility], [address], [place], [address], 14:51:28 Referral None recorded. Procedures None recorded. Surgeries None recorded. Imaging None recorded. Medication Orders fluconazole 150 mg tablet 2023 024 [facility] [place], [address], [place], [place], [id number], 4 15:44:18 metronidazo le 500 mg tablet 2023 [facility], [address] , [place], [place], [id number], 4 15:44:22 nystatin-tr iamcinolone 100,000 unit/gram-0 .1 % topical ointment 2023 024 [facility], [address] , [place], [place], [id number], 4 15:44:33 Patient TargetsNo targets recorded. Patient InstructionsNo instructions recorded. Reason for Referral None Reported. Results Created Date Observation Date Name Description Value Unit Range Abnormal Flag Note LastModifiedBy Organization Detail LastModifiedTime 01/24/20 23 01/23/2023 pregn grisel test, urine HCG negati ve Not Available [place] [address], [place], [address], 01/23/2023 14:51:20 07/26/19 24 07/26/2023 VAGIN ITIS/ VAGIN OSIS, DNA PROBE patrice sp. detection, direct probe Negati ve negati ve Not Available [facility] (Lab) [address] [place], [address], 07/27/2023 11:37:36 07/26/19 24 07/26/2023 VAGIN ITIS/ VAGIN OSIS, DNA PROBE gardnerella vag. detection, direct probe Negati ve negati ve Not Available [facility] (Lab) [address] [facility], [place], [address], 07/27/2023 11:37:36 07/26/19 24 07/26/2023 VAGIN ITIS/ VAGIN OSIS, DNA PROBE trichomonas vag. detection, direct probe Negati ve negati ve Not Available [facility] (Lab) [address] [place], [address], 07/27/2023 11:37:36 Result Notes None recorded. Problems Name Problem SNOMED Code Status Onset Date Resolution Date Notes Provider Name and Address Organization Details Recorded Time Bipolar disorder 25386417 Active 2022 Mónica Baca MD [address], [place], [address], [facility] 16:35:25 Attention deficit hyperactivit y disorder 402048652 Active 2022 Mónica Baca MD [address], [place], [address], [facility] 3 16:35:36 Autistic disorder 863124821 Active 2022 Mónica Baca MD [address], [place], [address], [facility] 16:35:47 Problem Notes None recorded. Procedures Surgical History Date Name Laterality Status Provider Name and Address Organization Details Recorded Time IUD Insertion completed Mónica Baca MD [address], [place], [address], [facility] 01/23/2023 20:08:03 Imaging Results None recorded. Procedure Notes None recorded. Medical Equipment None Reported. Allergies Allergen ID Allergen Name Allergen Category Reaction Reaction Severity Criticality Documentation Date Start Date Code Code System Note Provider Name and Address Organization Details Recorded Time [address] [place] [facility] Not available Not available Not available 01/12/2023 47390 65 RxNorm Trudy coulter, [facility] 14:21:59 10472 pork derived (porcine) food,medi cation Not available Not available Not available 01/12/2023 71505 UNK Trudy coulter [facility] 14:22:07 Medications Name Sig Start Date Stop Date Status Note LastModified by Organization Details LastModified Time amoxicillin 500 mg capsule TAKE 1 CAPSULE BY MOUTH EVERY 12 HOURS FOR 10 DAYS 07/25 completed Not Available Not Available Not Available dicloxacill in 500 mg capsule TAKE 1 CAPSULE BY MOUTH EVERY 6 HOURS FOR 14 DAYS 01/12 completed Not Available Not Available Not Available lamotrigine 150 mg tablet 03/12 completed Not Available Not Available Not Available venlafaxine ER 37.5 mg capsule,ext ended release 24 hr 01/12 completed Not Available Not Available Not Available venlafaxine ER 75 mg capsule,ext ended release 24 hr active Not Available Not Available Not Available fluconazole 150 mg tablet TAKE 1 TABLET BY MOUTH NOW. REPEAT IN 7 DAYS NEEDED active Not Available Not Available No t Available hydrocodone 5 mg-acetamin ophen 325 mg tablet 07/25 completed Not Available Not Available Not Available methylergon ovine 0.2 mg tablet 01/12 completed Not Available Not Available Not Available metronidazo le 500 mg tablet TAKE 1 TABLET BY MOUTH EVERY 12 HOURS FOR 7 DAYS active Not Available Not Available No t Available lamotrigine 25 mg tablet TAKE ONE TABLET BY MOUTH ONCE DAILY FOR 2 WEEKS, THEN INCREASE TO 2 TABS DAILY IF TOLERATIN G LOWER DOSE. 03/12 completed Not Available Not Available Not Available nystatin-tr iamcinolone 100,000 unit/gram-0 .1 % topical ointment APPLY TOPICALLY TO THE AFFECTED AREA TWICE DAILY FOR 5 DAYS active Not Available Not Available No t Available cephalexin 500 mg capsule 01/12 completed Not Available Not Available Not Available polymyxin B sulfate 10,000 unit-trimet hoprim 1 mg/mL eye drops INSTILL 1 DROP IN EACH EYE EVERY 3 HOURS WHILE AWAKE FOR 7 DAYS. DO NOT EXCEED 6 DOSES IN 24 HOURS 07/25 completed Not Available Not Available Not Available ondansetron 4 mg disintegrat ing tablet DISSOLVE 1 TABLET IN MOUTH EVERY 8 HOURS NEEDED FOR NAUSEA/VO MITING. DISSOLVE ON TOP OF TONGUE THEN SWALLOW WITH SALIVA. 01/12 completed Not Available Not Available Not Available lamotrigine 100 mg tablet TAKE 1 TABLET BY MOUTH ONCE DAILY active Not Available Not Available No t Available atomoxetine 25 mg capsule 07/25 completed Not Available Not Available Not Available chlorhexidi ne gluconate 0.12 % mouthwash 07/25 completed Not Available Not Available Not Available 07/25 completed Not Available Not Available Not Available Vitals Date Recorded Body height Body mass index (BMI) Body weight Systolic And Diastolic Provider Name and Address Organization Details Last Updated DateTime 07/26/2023 157.48 cm 23.8 kg/m2 77901.01 g 117/74 mm[Hg] Dagmar Bar [facility] 07/26/2023 15:23:29 Date Recorded Body height Body mass index (BMI) Body weight Systolic And Diastolic Provider Name and Address Organization Details Last Updated DateTime 01/12/2023 157.48 cm 22.5 kg/m2 65922.86 g 100/70 mm[Hg] [facility] 01/12/2023 14:04:15 Date Recorded Body height Body mass index (BMI) Body weight Systolic And Diastolic Provider Name and Address Organization Details Last Updated DateTime 01/23/2023 157.48 cm 22.3 kg/m2 44517.27 g 107/69 mm[Hg] [facility] 01/23/2023 14:47:42 Date Recorded Body height Body mass index (BMI) Body weight Systolic And Diastolic Provider Name and Address Organization Details Last Updated DateTime 03/12/2023 157.48 cm 23.6 kg/m2 71386.42 g 109/74 mm[Hg] Abby Rico [facility] 03/12/2023 11:58:39 Social History Question Answer Notes LastModified by [employer] Details LastModified Time Tobacco Smoking Status Never Smoker [facility] 01/12/2023 14:05:34 If You Are , What Was Your Level Of Alcohol Consumption Prior To ? None Information not available 01/12/2023 Have You Ever Been Counseled For Unhealthy Alcohol Use? No Information not available 01/12/2023 Has Tobacco Cessation Counseling Been Provided? No Information not available 01/12/2023 Sex: Unknown Functional Status Question Answer Note LastModified by [employer] Details LastModified Time Do you use any illicit or recreational drugs? No Information not available 01/12/2023 Do you or have you ever used any other forms of tobacco or nicotine? No Information not available 01/12/2023 What is your level of alcohol consumption? Occasional Information not available 01/12/2023 Mental Status None recorded. Family History Relationship Description Onset Age of this Age Resolved Age Notes LastModified by Organization Details LastModified Time Mother Anemia [email or web address] Not available 14:07:11 Mother Asthma [email or web address] Not available 14:07:31 Mother Diabetes mellitus [email or web address] Not available 2022 14:08:14 Mother Hypercholest erolemia [email or web address] Not available 2022 14:08:36 Mother Hypertensive disorder smcaley Not available 2022 14:08:53 Mother Cyst of ovary [email or web address] Not available 2022 14:09:27 Mother Mental disorder [email or web address] Not available 2022 14:09:54 Maternal Grandmother Anemia [email or web address] Not available 2022 14:07:11 Maternal Grandmother Asthma smcaley Not available 2022 14:07:31 Maternal Grandmother Hypertensive disorder [email or web address] Not available 2022 14:08:53 Maternal Grandmother Female infertility [email or web address] Not available 12/20 14:09:10 Maternal Grandmother Mental disorder [email or web address] Not available 2022 14:09:54 Maternal Grandmother Disorder of thyroid gland [email or web address] Not available 2022 14:10:30 Son Anemia smcaley Not available 14:07:11 Sister Asthma [email or web address] Not available 14:07:31 Sister Mental disorder [email or web address] Not available 2022 14:09:54 Sister Seizure disorder [email or web address] Not available 2022 14:23:09 Maternal Grandfather Heart disease [email or web address] Not available 2022 14:07:57 Maternal Grandfather Diabetes mellitus [email or web address] Not available 2022 14:08:14 Maternal Grandfather Hypercholest erolemia smcaley Not available 2022 14:08:36 Maternal Grandfather Hypertensive disorder [email or web address] Not available 2022 14:08:53 Maternal Grandfather Mental disorder [email or web address] Not available 2022 14:09:54 Medical History Condition Response Allergies (Food, seasonal, environmental ) N Other N Breast Cancer N Drug/Latex Allergies/Reactions N Blood Transfusion N Lung Disease N Dermatologic Disorders N Defects or Inherited Disease N Breast Problem N Gestational Diabetes N Hematologic disorders N Anesthesia Complications N History of STI N Deep Vein Thrombosis N Polycystic ovary syndrome N Anxiety Disorder N Autoimmune disease N Arthritis N Polyps N Infertility Y History of abnormal pap N Acid Reflux (GERD) N Cancer N Varicosities N Stroke N Neurologic/Epilepsy N Endometriosis N High Cholesterol N Fibromyalgia N Headaches N Kidney Disease N Heart Problems N Kidney or Bladder Problems N Thyroid Problems N GI Problems N Eating Disorder N Anemia Y Art (IVF or FET) N Psychiatric Illness Y Ovarian Cancer N Diabetes N Pulmonary (TB, Asthma) N Hepatitis/Liver Disease N No Past Medical History N Eczema N Urinary Tract Infection N Abuse/Domestic Violence N Asthma Y Trauma/Violence N Depression/ depression N Heart Disease N Pre-Eclampsia N Hypertension N Osteoporosis N Thrombophilias N Gynecological History Statement/Question Response Date of LMP 07/20/2023 STIs/STDs N Was last menstrual period normal N HPV Vaccine N Current Control Method IUD Are cycles usually normal N Sexually Active? Y Menses Monthly N Age of first menstrual cycle 14 Date of Last Pap Smear Sexual Problems? Y LMP Approximate Obstetrics History GPAL:G 10 P 2 1 7 3 Type Value Full Term 2 Spontaneous 7 Premature 1 Living 3 Total 10 Past Encounters Encounter ID Performer Location Encounter Start Date Encounter Closed Date Diagnosis/Indication Diagnosis SNOMED-CT Code Diagnosis ICD10 Code Diagnosis Note [id number] Mónica Baca MD [place] [address] [place] [address] 01/12/2023 13:44:10 01/12/2023 17:05:22 Contraception care management 096739677 Z30.9 [id number] Mónica Baca MD [place] [address] [place] [address] 01/23/2023 14:23:53 01/24/2023 10:50:31 Contraception care management 278762612 Z30.9 Insertion of intrauterine contraceptive device 23627150 Z30.430 [id number] BARBIE Gardiner [place] [address] [place] [address] 03/12/2023 11:51:29 03/12/2023 12:12:45 IUD check 995406907 Z30.431 Patient is here for 4-6wk IUD string check.(+) IUD strings noted on examShe denies complicati ons, pain, or unpleasant side effects.Goldsmith ppy with this control method.Wis hes to continue. RTC for WWE Time spent in visit is a total of 18 mins with at least 50% of visit consisting of counseling and review of plan of care. [id number] BARBIE Gardiner [place] [address] [address] 07/26/2023 15:14:26 07/26/2023 16:22:14 Vaginitis 50781204 N76.0 vaginitis panel sentdeclin ed STI screenvulv ar care guidelines discussedr x sent for BV/yeast - r/b/a reviewedRT C for WWE Contracept ion care management 584190823 Z30.9 Pt is int in permanent sterlizati on - handout givenif desired can schedule MD consult with Dr. Edwards Time spent in visit is a total of 28mins with at least 50% of visit consisting of counseling and review of plan of care. Health Concerns Section Related Observation LastModified by Organization Detai ls LastModified Time None Recorded Concern Status LastModified by Organization Details LastModified Time None Recorded Advance Directives Directive None Recorded Payers Insurance Date Sequence Insurance Name Policy Number Policy Armendariz Covered Member ID Armendariz Member ID Guarantor Name 07/26/2023 1 [place] [id number] Enzo Cohen [id number] Fariha Cohen Notes Date Note Type Note Provider Name and Address Organization Details Recorded Time 3 text/html Patient is a 22yo who presents for control. She is sexually active. Breast and bottle feeding her youngest, born 08/2022 at [facility]. Menses: regular. Concerns: last WWE: couple years? Depression: has bipolar, stable on lamictal. also adhd and autism Domestic violence: denies Mónica Baca MD [address], [place], [address], [facility] 01/12/2023 16:52:08 3 text/html Patient presents for IUD insertion. Mónica Baca MD [address], [place], [address], [facility] 01/23/2023 20:08:33 3 text/html 22yopresents for IUD checks/p Mirena IUD, inserted at [facility] 01/23/2023no issues since insertionno abnormal bleeding or pain BARBIE Gardiner [address], [place], [address], [facility] 03/12/2023 12:12:09 4 text/html 23yopresents for evaluation of vaginal discharge/itching/irrita tionsymptoms present x 3-4 weeksirritation, itching, IC is uncomfortableMirena IUD for BC - has questions about permanent sterlization - does not desire any future fertilityno new partnershas not used any new soaps/products/etcneg pelvic painneg n/v/fneg flu-like symptoms BARBIE Gardiner [address], [place], [address], [facility] 07/26/2023 16:20:49 OBGyn Episode Ob Episode Information Episode Created Date Number of Fetuses Patient Bloodtype Patient rh Status Prepregnancy Weight lbs Domestic Partner Domestic Partner Phone Father Name Diesel Engine I Pipe Fitter Status 01/13/20 23 1 CLOSED Fetus Data First Name Last Name Admitted to NICU Weight (g) Sex Living Outcome Pediatric Complications Fetus ID Race Codes Race Delivery Type , Spontane ous [id number] Alexandru Calculation Initial Alexandru Date Initial Exam Date Initial Exam Provider Initial Ultrasound Date Last Menstrual Period Date Ultra Sound Weeks Gestation 0 Eighteen To Twenty Week Alexandru Update Ultra Sound Date Fundal Height At Umbil Quickening Date Ultra Sound Latest Weeks Gestation Final Alexandru Confirmed By Final Alexandru Confirmed Date Final Alexandru Date Ultra Sound Latest Days Gestation 0 0 Menstrual History Last Menstrual Date Menses Monthly On Bcp Conception Prior Menses Frequency Hcg Plus Date Menarche Onset Age Delivery Information Delivery Date Delivery Type Labor Anesthesia Weeks Gestation Incision Type Labor Labor Length Hrs Delivered By Post Complications Tubal Sterilization Discharge Date Comments 7 Discharge Information Feeding Method Contraceptive Method Maternal HG B and HCT Levels Ob Episode Information Episode Created Date Number of Fetuses Patient Bloodtype Patient rh Status Prepregnancy Weight lbs Domestic Partner Domestic Partner Phone Father Name Diesel Engine I Pipe Fitter Status 01/13/20 23 1 CLOSED Fetus Data First Name Last Name Admitted to NICU Weight (g) Sex Living Outcome Pediatric Complications Fetus ID Race Codes Race Delivery Type , Spontane ous [id number] Alexandru Calculation Initial Alexandru Date Initial Exam Date Initial Exam Provider Initial Ultrasound Date Last Menstrual Period Date Ultra Sound Weeks Gestation 0 Eighteen To Twenty Week Alexandru Update Ultra Sound Date Fundal Height At Umbil Quickening Date Ultra Sound Latest Weeks Gestation Final Alexandru Confirmed By Final Alexandru Confirmed Date Final Alexandru Date Ultra Sound Latest Days Gestation 0 0 Menstrual History Last Menstrual Date Menses Monthly On Bcp Conception Prior Menses Frequency Hcg Plus Date Menarche Onset Age Delivery Information Delivery Date Delivery Type Labor Anesthesia Weeks Gestation Incision Type Labor Labor Length Hrs Delivered By Post Complications Tubal Sterilization Discharge Date Comments 0 Discharge Information Feeding Method Contraceptive Method Maternal HG B and HCT Levels Ob Episode Information Episode Created Date Number of Fetuses Patient Bloodtype Patient rh Status Prepregnancy Weight lbs Domestic Partner Domestic Partner Phone Father Name Diesel Engine I Pipe Fitter Status 01/13/20 23 1 CLOSED Fetus Data First Name Last Name Admitted to NICU Weight (g) Sex Living Outcome Pediatric Complications Fetus ID Race Codes Race Delivery Type , Spontane ous [id number] Alexandru Calculation Initial Alexandru Date Initial Exam Date Initial Exam Provider Initial Ultrasound Date Last Menstrual Period Date Ultra Sound Weeks Gestation 0 Eighteen To Twenty Week Alexandru Update Ultra Sound Date Fundal Height At Umbil Quickening Date Ultra Sound Latest Weeks Gestation Final Alexandru Confirmed By Final Alexandru Confirmed Date Final Alexandru Date Ultra Sound Latest Days Gestation 0 0 Menstrual History Last Menstrual Date Menses Monthly On Bcp Conception Prior Menses Frequency Hcg Plus Date Menarche Onset Age Delivery Information Delivery Date Delivery Type Labor Anesthesia Weeks Gestation Incision Type Labor Labor Length Hrs Delivered By Post Complications Tubal Sterilization Discharge Date Comments 0 Discharge Information Feeding Method Contraceptive Method Maternal HG B and HCT Levels Ob Episode Information Episode Created Date Number of Fetuses Patient Bloodtype Patient rh Status Prepregnancy Weight lbs Domestic Partner Domestic Partner Phone Father Name Diesel Engine I Pipe Fitter Status 01/13/20 1 CLOSED Fetus Data First Name Last Name Admitted to NICU Weight (g) Sex Living Outcome Pediatric Complications Fetus ID Race Codes Race Delivery Type , Spontane ous Alexandru Calculation Initial Alexandru Date Initial Exam Date Initial Exam Provider Initial Ultrasound Date Last Menstrual Period Date Ultra Sound Weeks Gestation 0 Eighteen To Twenty Week Alexandru Update Ultra Sound Date Fundal Height At Umbil Quickening Date Ultra Sound Latest Weeks Gestation Final Alexandru Confirmed By Final Alexandru Confirmed Date Final Alexandru Date Ultra Sound Latest Days Gestation 0 0 Menstrual History Last Menstrual Date Menses Monthly On Bcp Conception Prior Menses Frequency Hcg Plus Date Menarche Onset Age Delivery Information Delivery Date Delivery Type Labor Anesthesia Weeks Gestation Incision Type Labor Labor Length Hrs Delivered By Post Complications Tubal Sterilization Discharge Date Comments 0 Discharge Information Feeding Method Contraceptive Method Maternal HG B and HCT Levels Ob Episode Information Episode Created Date Number of Fetuses Patient Bloodtype Patient rh Status Prepregnancy Weight lbs Domestic Partner Domestic Partner Phone Father Name Diesel Engine I Pipe Fitter Status 01/13/20 1 CLOSED Fetus Data First Name Last Name Admitted to NICU Weight (g) Sex Living Outcome Pediatric Complications Fetus ID Race Codes Race Delivery Type , Spontane ous Alexandru Calculation Initial Alexandru Date Initial Exam Date Initial Exam Provider Initial Ultrasound Date Last Menstrual Period Date Ultra Sound Weeks Gestation 0 Eighteen To Twenty Week Alexandru Update Ultra Sound Date Fundal Height At Umbil Quickening Date Ultra Sound Latest Weeks Gestation Final Alexandru Confirmed By Final Alexandru Confirmed Date Final Alexandru Date Ultra Sound Latest Days Gestation 0 0 Menstrual History Last Menstrual Date Menses Monthly On Bcp Conception Prior Menses Frequency Hcg Plus Date Menarche Onset Age Delivery Information Delivery Date Delivery Type Labor Anesthesia Weeks Gestation Incision Type Labor Labor Length Hrs Delivered By Post Complications Tubal Sterilization Discharge Date Comments 2 Discharge Information Feeding Method Contraceptive Method Maternal HG B and HCT Levels Ob Episode Information Episode Created Date Number of Fetuses Patient Bloodtype Patient rh Status Prepregnancy Weight lbs Domestic Partner Domestic Partner Phone Father Name Diesel Engine I Pipe Fitter Status 01/13/20 1 CLOSED Fetus Data First Name Last Name Admitted to NICU Weight (g) Sex Living Outcome Pediatric Complications Fetus ID Race Codes Race Delivery Type , Spontane ous [id number] Alexandru Calculation Initial Alexandru Date Initial Exam Date Initial Exam Provider Initial Ultrasound Date Last Menstrual Period Date Ultra Sound Weeks Gestation 0 Eighteen To Twenty Week Alexandru Update Ultra Sound Date Fundal Height At Umbil Quickening Date Ultra Sound Latest Weeks Gestation Final Alexandru Confirmed By Final Alexandru Confirmed Date Final Alexandru Date Ultra Sound Latest Days Gestation 0 0 Menstrual History Last Menstrual Date Menses Monthly On Bcp Conception Prior Menses Frequency Hcg Plus Date Menarche Onset Age Delivery Information Delivery Date Delivery Type Labor Anesthesia Weeks Gestation Incision Type Labor Labor Length Hrs Delivered By Post Complications Tubal Sterilization Discharge Date Comments 0 Discharge Information Feeding Method Contraceptive Method Maternal HG B and HCT Levels Ob Episode Information Episode Created Date Number of Fetuses Patient Bloodtype Patient rh Status Prepregnancy Weight lbs Domestic Partner Domestic Partner Phone Father Name Diesel Engine I Pipe Fitter Status 01/13/20 23 1 CLOSED Fetus Data First Name Last Name Admitted to NICU Weight (g) Sex Living Outcome Pediatric Complications Fetus ID Race Codes Race Delivery Type , Spontane ous [id number] Alexandru Calculation Initial Alexandru Date Initial Exam Date Initial Exam Provider Initial Ultrasound Date Last Menstrual Period Date Ultra Sound Weeks Gestation 0 Eighteen To Twenty Week Alexandru Update Ultra Sound Date Fundal Height At Umbil Quickening Date Ultra Sound Latest Weeks Gestation Final Alexandru Confirmed By Final Alexandru Confirmed Date Final Alexandru Date Ultra Sound Latest Days Gestation 0 0 Menstrual History Last Menstrual Date Menses Monthly On Bcp Conception Prior Menses Frequency Hcg Plus Date Menarche Onset Age Delivery Information Delivery Date Delivery Type Labor Anesthesia Weeks Gestation Incision Type Labor Labor Length Hrs Delivered By Post Complications Tubal Sterilization Discharge Date Comments 2 Discharge Information Feeding Method Contraceptive Method Maternal HG B and HCT Levels Ob Episode Information Episode Created Date Number of Fetuses Patient Bloodtype Patient rh Status Prepregnancy Weight lbs Domestic Partner Domestic Partner Phone Father Name Diesel Engine I Pipe Fitter Status 01/13/20 23 1 DELETED Alexandru Calculation Initial Alexandru Date Initial Exam Date Initial Exam Provider Initial Ultrasound Date Last Menstrual Period Date Ultra Sound Weeks Gestation 0 Eighteen To Twenty Week Alexandru Update Ultra Sound Date Fundal Height At Umbil Quickening Date Ultra Sound Latest Weeks Gestation Final Alexandru Confirmed By Final Alexandru Confirmed Date Final Alexandru Date Ultra Sound Latest Days Gestation 0 0 Menstrual History Last Menstrual Date Menses Monthly On Bcp Conception Prior Menses Frequency Hcg Plus Date Menarche Onset Age Delivery Information Delivery Date Delivery Type Labor Anesthesia Weeks Gestation Incision Type Labor Labor Length Hrs Delivered By Post Complications Tubal Sterilization Discharge Date Comments 8 Discharge Information Feeding Method Contraceptive Method Maternal HG B and HCT Levels Ob Episode Information Episode Created Date Number of Fetuses Patient Bloodtype Patient rh Status Prepregnancy Weight lbs Domestic Partner Domestic Partner Phone Father Name Diesel [employer] Pipe Fitter Status 01/13/20 1 CLOSED Fetus Data First Name Last Name Admitted to NICU Weight (g) Sex Living Outcome Pediatric Complications Fetus ID Race Codes Race Delivery Type 3175.14 4 M Full Term [id number] Vaginal Delivery Alexandru Calculation Initial Alexandru Date Initial Exam Date Initial Exam Provider Initial Ultrasound Date Last Menstrual Period Date Ultra Sound Weeks Gestation 0 Eighteen To Twenty Week Alexandru Update Ultra Sound Date Fundal Height At Umbil Quickening Date Ultra Sound Latest Weeks Gestation Final Alexandru Confirmed By Final Alexandru Confirmed Date Final Alexandru Date Ultra Sound Latest Days Gestation 0 0 Menstrual History Last Menstrual Date Menses Monthly On Bcp Conception Prior Menses Frequency Hcg Plus Date Menarche Onset Age Delivery Information Delivery Date Delivery Type Labor Anesthesia Weeks Gestation Incision Type Labor Labor Length Hrs Delivered By Post Complications Tubal Sterilization Discharge Date Comments 9 39 Discharge Information Feeding Method Contraceptive Method Maternal HG B and HCT Levels Ob Episode Information Episode Created Date Number of Fetuses Patient Bloodtype Patient rh Status Prepregnancy Weight lbs Domestic Partner Domestic Partner Phone Father Name Diesel Engine I Pipe 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 Status 01/13/20 1 CLOSED Fetus Data First Name Last Name Admitted to NICU Weight (g) Sex Living Outcome Pediatric Complications Fetus ID Race Codes Race Delivery Type 2863.07 [id number] F Full Term [id number] Vaginal Delivery Alexandru Calculation Initial Alexandru Date Initial Exam Date Initial Exam Provider Initial Ultrasound Date Last Menstrual Period Date Ultra Sound Weeks Gestation 0 Eighteen To Twenty Week Alexandru Update Ultra Sound Date Fundal Height At Umbil Quickening Date Ultra Sound Latest Weeks Gestation Final Alexandru Confirmed By Final Alexandru Confirmed Date Final Alexandru Date Ultra Sound Latest Days Gestation 0 0 Menstrual History Last Menstrual Date Menses Monthly On Bcp Conception Prior Menses Frequency Hcg Plus Date Menarche Onset Age Delivery Information Delivery Date Delivery Type Labor Anesthesia Weeks Gestation Incision Type Labor Labor Length Hrs Delivered By Post Complications Tubal Sterilization Discharge Date Comments 1 38 Discharge Information Feeding Method Contraceptive Method Maternal HG B and HCT Levels Ob Episode Information Episode Created Date Number of Fetuses Patient Bloodtype Patient rh Status Prepregnancy Weight lbs Domestic Partner Domestic Partner Phone Father Name Diesel Engine I Pipe Fitter Status 01/13/20 1 CLOSED Fetus Data First Name Last Name Admitted to NICU Weight (g) Sex Living Outcome Pediatric Complications Fetus ID Race Codes Race Delivery Type 2324.65 9 M Prematur e [id number] Vaginal Delivery Alexandru Calculation Initial Alexandru Date Initial Exam Date Initial Exam Provider Initial Ultrasound Date Last Menstrual Period Date Ultra Sound Weeks Gestation 0 Eighteen To Twenty Week Alexandru Update Ultra Sound Date Fundal Height At Umbil Quickening Date Ultra Sound Latest Weeks Gestation Final Alexandru Confirmed By Final Alexandru Confirmed Date Final Alexandru Date Ultra Sound Latest Days Gestation 0 0 Menstrual History Last Menstrual Date Menses Monthly On Bcp Conception Prior Menses Frequency Hcg Plus Date Menarche Onset Age Delivery Information Delivery Date Delivery Type Labor Anesthesia Weeks Gestation Incision Type Labor Labor Length Hrs Delivered By Post Complications Tubal Sterilization Discharge Date Comments 3 36 Discharge Information Feeding Method Contraceptive Method Maternal HG B and HCT Levels
[2024-11-20 13:41] LABS: Beta HCG Quantitative < 2.39 mIU/ML
== END 2024-11-20 12:06 | disposition home or self-care (01) ==
LOC: ANHLAB 12:08
PROVIDERS: PCP Nurse Practitioner Family; Visit Provider Obstetrics & Gynecology
DX: Z32.01 Encounter for pregnancy test, result positive (principal)
CPT/HCPCS: 36415; 84702

== ENCOUNTER 2024-12-23 16:20 | Outpatient (CLI) | payer BC, SELFPAY ==
[2024-12-23 17:38] LABS: Beta HCG Quantitative < 2.39 mIU/ML
== END 2024-12-23 16:21 | disposition home or self-care (01) ==
LOC: ANHLAB 16:25
PROVIDERS: PCP Nurse Practitioner Family; Visit Provider Obstetrics & Gynecology
DX: Z32.01 Encounter for pregnancy test, result positive (principal)
CPT/HCPCS: 36415; 84702

== ENCOUNTER 2025-01-05 11:34 | Emergency (ER) | payer OTHER, BC, SELFPAY ==
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
[2025-01-05 11:39] VITALS: BP 137/88; PULSE 79; RESP 20; TEMP 36.7; O2SAT 100
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
[2025-01-05] MEDS: KETOROLAC 30 MG/ML VIAL (*BKC) IV PUSH (13:13)
[2025-01-05 13:25] LABS: Hematocrit 37.6 % (37.0-47.0); Hemoglobin 12.6 g/dL (12.0-15.0); Immature Granulocyte Percent A 0.5 % (0-0.5); Lymphocytes Absolute Auto 1.67 K/mm3 (0.9-3.2); Mean Corpuscular HGB Conc 33.5 g/dl (32-36); Mean Corpuscular Hemoglobin 29.1 pg (26-34); Mean Corpuscular Volume 86.8 fl (80-100); Nucleated Red Blood Cells Absolute Auto 0.000 K/mm3 (0.0-0.012); Nucleated Red Blood Cells Perc 0.0 % (0.0-0.2); Platelet Count Result 236 k/mm3 (150-375); Red Blood Count 4.33 M/mm3 (4.2-5.4); White Blood Count 6.4 K/mm3 (4.5-10.0)
[2025-01-05 13:47] LABS: Alanine Aminotransferase 20 U/L (6-35); Albumin Level 4.4 g/dL (3.5-5.1); Alkaline Phosphatase 62 U/L (38-126); Anion Gap 9 mmol/L (4-12); Aspartate Amino Transferase 23 U/L (14-36); Bilirubin,Total 0.9 mg/dL (0.2-1.3); Blood Urea Nitrogen 10 mg/dL (7-17); Calcium 9.5 mg/dL (8.4-10.2); Carbon Dioxide 22 mmol/L (22-30); Chloride 108 mmol/L (98-107); Estimated Glomerular Filt Rate > 60; Glucose 85 mg/dL (65-110); Potassium 4.3 mmol/L (3.4-5.0); Sodium 139 mmol/L (137-145); Total Protein 7.1 g/dL (6.3-8.2)
[2025-01-05] MEDS: MORPHINE SULFATE (*CRX) 4 MG/ML INJ IV PUSH ×2 (14:04→16:57)
[2025-01-05] MEDS: CYCLOBENZAPRINE HCL 10 MG TABLET PO (14:04)
[2025-01-05 15:38] LABS: SPREG INTERNAL CONTROL Positive; Serum Qual hCG Negative
--- NOTE | 2025-01-05 18:09 | PC.NURSE ---
C-collar removed and aspen collar placed by
== END 2025-01-05 18:18 | disposition home or self-care (01) ==
PROVIDERS: Emergency Provider Student in an Organized Health Care Education/Training Program; PCP Nurse Practitioner Family
DX: S13.9XXA Sprain of joints and ligaments of unspecified parts of neck, initial encounter (principal); J45.909 Unspecified asthma, uncomplicated; F31.9 Bipolar disorder, unspecified; F43.10 Post-traumatic stress disorder, unspecified; F90.9 Attention-deficit hyperactivity disorder, unspecified type; F42.9 Obsessive-compulsive disorder, unspecified; F41.9 Anxiety disorder, unspecified; V49.40XA Driver injured in collision with unspecified motor vehicles in traffic accident, initial encounter; Z97.5 Presence of (intrauterine) contraceptive device; Z86.2 Personal history of diseases of the blood and blood-forming organs and certain disorders involving the immune mechanism; Z79.899 Other long term (current) drug therapy
CPT/HCPCS: 36415; 70450; 71260; 72125; 74177; 80053; 84703; 85025; 96374; 96375; 96376; 99284; A9270; J1885; J2270; L0140; Q9967